=== PATIENT | male | born 1980 | race African-American/Black ===

== ENCOUNTER 2023-12-17 11:54 | Emergency (ER) | payer SELFPAY ==
[~2023-12-17] VITALS: Ht 177.8 cm; Wt 91.4 kg
[~2023-12-17 11:54] MED LIST: TYLENOL W/COD1 UDTAB PO
[2023-12-17 12:03] VITALS: TEMP 97.4
[2023-12-17] MEDS ORDERED: Ondansetron 4 MG/2 ML VIAL IV ONE (12:45)
[2023-12-17] MEDS ORDERED: NS 1,000 ML IV ONE (12:45)
[2023-12-17 13:02] LABS: BASO % 0.3 % (0.0-2.0); EOS % 0.1 % (0.0-4.0); GRAN # 12.9 K/mm3 (1.4-6.5); GRAN % 84.5 % (42.2-75.2); HEMATOCRIT 47.3 % (42.0-52.0); HEMOGLOBIN 15.7 g/dl (13.5-18.0); LYMPH # 1.2 K/mm3 (1.2-3.4); LYMPH % 7.8 % (20.0-51.0); MEAN CELL VOLUME 83 fl (80.0-100.0); MEAN CORPUSCULAR HEMOGLOBIN 28 pg (27-31); MEAN CORPUSCULAR HGB CONC 33 g/dl (33.0-37.0); MEAN PLATELET VOLUME 8.9 fl (7.4-10.4); MONO # 1.1 K/mm3 (0.1-0.6); PLATELET COUNT 405 K/mm3 (130-400); RED BLOOD COUNT 5.68 M/mm3 (4.20-5.60); REDCELL DISTRIBUTION WIDTH-CV 15.4 % (11.5-14.5)
[2023-12-17 13:28] LABS: BILIRUBIN,TOTAL 0.9 mg/dL (0.2-1.2); CALCIUM 9.5 mg/dL (8.4-10.2); CREATININE, serum 3.43 mg/dL (0.72-1.25); POTASSIUM 4.8 mEq/L (3.5-4.5)
[2023-12-17 15:42] VITALS: BP 117/65; PULSE 92
[2023-12-20 12:25] VITALS: O2SAT 100
== END 2023-12-17 15:45 | disposition left against medical advice (07) ==
LOC: COL.ER 11:54
PROVIDERS: Physician Assistant
DX: N17.9 Acute kidney failure, unspecified (principal); R74.01 Elevation of levels of liver transaminase levels; F17.210 Nicotine dependence, cigarettes, uncomplicated
CPT/HCPCS: J2405; J7030

== ENCOUNTER 2023-12-19 00:17 | Inpatient (IN) | payer SELFPAY ==
[~2023-12-19] VITALS: Ht 177.8 cm; Wt 94.6 kg
[2023-12-19] VITALS (11 sets, daily range): BP systolic 107–182; BP diastolic 93–119; PULSE 72–95; TEMP 97.1–98.4
[2023-12-19] MEDS ORDERED: NS 1,000 ML IV ONE ×3 (01:00→03:45)
[2023-12-19 01:25] LABS: ALANINE AMINOTRANSFERASE 392 U/L (0-55); ALBUMIN 3.2 g/dL (3.5-5.0); ALKALINE PHOSPHATASE 112 U/L (40-150); ANION GAP 14 mmol/L (7-16); AST,SGOT 539 U/L (5-34); BILIRUBIN,TOTAL 0.9 mg/dL (0.2-1.2); BLOOD UREA NITROGEN 33 mg/dL (9-21); CALCIUM 9.2 mg/dL (8.4-10.2); CHLORIDE 97 mEq/L (98-107); CREATININE, serum 3.49 mg/dL (0.72-1.25); GLUCOSE 113 mg/dL (70-99); POTASSIUM 3.8 mEq/L (3.5-4.5); SODIUM 134 mEq/L (136-145); TOTAL PROTEIN 6.9 g/dl (6.2-8.1)
[2023-12-19 01:26] LABS: BASO % 0.2 % (0.0-2.0); EOS # 0.1 K/mm3 (0.0-0.7); EOS % 1.3 % (0.0-4.0); GRAN # 6.6 K/mm3 (1.4-6.5); GRAN % 61.6 % (42.2-75.2); HEMATOCRIT 41.6 % (42.0-52.0); HEMOGLOBIN 14.4 g/dl (13.5-18.0); LYMPH # 2.9 K/mm3 (1.2-3.4); LYMPH % 26.7 % (20.0-51.0); MEAN CELL VOLUME 80 fl (80.0-100.0); MEAN CORPUSCULAR HEMOGLOBIN 28 pg (27-31); MEAN CORPUSCULAR HGB CONC 35 g/dl (33.0-37.0); MEAN PLATELET VOLUME 9.4 fl (7.4-10.4); MONO # 1.1 K/mm3 (0.1-0.6); MONO % 9.9 % (1.7-9.3); PLATELET COUNT 366 K/mm3 (130-400); RED BLOOD COUNT 5.19 M/mm3 (4.20-5.60); REDCELL DISTRIBUTION WIDTH-CV 14.5 % (11.5-14.5)
[2023-12-19 01:34] LABS: ALCOHOL(ethanol),MEDICAL < 10 mg/dL (0-10)
[2023-12-19 01:51] LABS: COLLECTION METHOD CLEAN CATCH
[2023-12-19] MEDS ORDERED: NS 1,000 ML IV SCH (02:00)
[2023-12-19 02:03] LABS: URINE APPEARANCE CLOUDY (CLEAR/HAZY); URINE BLOOD 2+ (NEGATIVE); URINE COLOR YELLOW (YELLOW); URINE GLUCOSE NEGATIVE (NEGATIVE); URINE KETONE NEGATIVE (NEGATIVE); URINE NITRATE NEGATIVE (NEGATIVE); URINE PROTEIN(semi-quant) NEGATIVE (NEGATIVE); URINE UROBILINOGEN 0.2 E.U/dL (0.2-1.0)
[2023-12-19 02:10] LABS: TRICYCLIC ANTIDEPRESS URINE NEGATIVE (NEGATIVE)
[2023-12-19 02:26] LABS: MAGNESIUM 1.9 mg/dL (1.6-2.6)
[2023-12-19 02:58] LABS: INR 1.1 (0.8-3.0)
[2023-12-19] MEDS ORDERED: cefTRIAXone 2 G in Water For Injection,Sterile 20 ML IV SCH (03:00)
[2023-12-19] MEDS ORDERED: Morphine 4 MG/ML VIAL IV PRN (03:30)
--- NOTE | 2023-12-19 04:00 | NUR ---
Pt. bp elevated, see vitals. KATERYNA Rosales notified. No new orders at this time.
--- NOTE | 2023-12-19 04:20 | NUR ---
Pt. to the floor. Pt. is A&OX3, assessment complete. IV to lt. ac patent, fluids started. Pt. denies pain at this time. Mckeon catheter placed per orders. 16 fr. Clear yellow urine noted. Urine sent with lab for FENA. Pt. denies further needs, call light within reach.
[2023-12-19 04:39] LABS: CREATININE, serum 3.04 mg/dL (0.72-1.25)
[2023-12-19 04:58] LABS: FRACTIONAL EXCRETION OF NA+ 0.67 %
--- NOTE | 2023-12-19 07:00 | NUR ---
awake resting in bed, bedside shift report received from PAIGE Bello
[2023-12-19 08:08] LABS: CALCIUM 8.3 mg/dL (8.4-10.2); CREATININE, serum 2.83 mg/dL (0.72-1.25); POTASSIUM 3.8 mEq/L (3.5-4.5)
--- NOTE | 2023-12-19 08:50 | NUR ---
appears to be sleeping, awakened and full assessment completed, see interventions for further info, right hand is swollen and tight to touch, has good radial pulse, only c/os minimal pain to right hand with movement, HALIE Santos with orthopaedics was in earlier and has ordered MRI,
[2023-12-19] MEDS ORDERED: Pantoprazole 40 MG in NS 10 ML IV SCH (09:00)
[2023-12-19] MEDS ORDERED: Vancomycin 1.5 GM,Special Dose/Pharmacy Prepared 1.5 GM in NS 250 ML IV SCH (09:15)
--- NOTE | 2023-12-19 09:15 | NUR ---
Vancomycin Initial Dosing Pharmacy Note Ordering provider: MD ZURI Indication/duration: CELLULITIS Relevant comorbidities: HX IV DRUG USE LABS: SCR 2.8 Recommendation: VANCOMYCIN ~15 MG/KG Maintenance dose: 1.5 grams every 24 hours Trough goal: 10-15 ug/mL. EARLY TROUGH 12/20 DUE TO MARCELL
--- NOTE | 2023-12-19 10:42 | NUR ---
awake and looking at TV, denies needs
--- NOTE | 2023-12-19 10:55 | NUR ---
Dr Forbes notified of BP 176/119
[2023-12-19] MEDS ORDERED: amLODIPine 10 MG TAB PO SCH ×2 (10:57→14:18)
--- NOTE | 2023-12-19 11:04 | NUR ---
resting in bed, female visitor in to visit at this time
--- NOTE | 2023-12-19 12:19 | NUR ---
to radiology per WC for MRI right hand
[2023-12-19] MEDS ORDERED: Gadoterate 20 ML VIAL IV ONE (12:27)
--- NOTE | 2023-12-19 13:02 | NUR ---
remains off unit for MRI
--- NOTE | 2023-12-19 13:13 | NUR ---
returned from MRI, resting in bed, instructed on ordering regular food
[2023-12-19] MEDS ORDERED: hydrALAZINE 25 MG TAB PO PRN (14:30)
--- NOTE | 2023-12-19 14:41 | NUR ---
called by crown and bridge dental lab technician he regarding his rhythmn, patient is resting in bed quietly and denies pain or needs
[2023-12-19] MEDS ORDERED: Ondansetron 4 MG/2 ML VIAL IV PRN (14:45)
--- NOTE | 2023-12-19 14:56 | NUR ---
Dry Kiln Operator met with patient to discuss discharge planning. Patient lives alone in [place] and does not have a primary care provider at this time. Patient reported he has Medicaid [facility], but is listed as self pay. BRYNN updated financial team. SW advised Roxie is able to accept Medicaid. Patient advised he uses [facility] for medications and does not use any DME. Patient is independent with ADLS, including driving. Patient does not have DPOA-HC and is not interested in creating one at this time. Patient is not , has no children, and his parents are . Patient has one sister, Dev (ph#[phone]) who lives in [place]. Patient plans to return home at time of discharge. Discharge Plan; Home
--- NOTE | 2023-12-19 17:40 | NUR ---
resting in bed looking at TV, had small amount of supper, denies needs
--- NOTE | 2023-12-19 18:58 | NUR ---
bedside shift report given to PAIGE Fu
--- NOTE | 2023-12-19 21:30 | NUR ---
Patient resting in bed. Denies any pain or needs at this time. Assessment and med rec complete. IV in left AC infusing with no complications. Call light and personal items in reach. Bed in low position and bed alarm on.
[2023-12-20] VITALS (9 sets, daily range): BP systolic 94–163; BP diastolic 54–99; PULSE 56–125; TEMP 95–98.1
--- NOTE | 2023-12-20 06:29 | NUR ---
Patient resting in bed with eyes closed. Respirations even and unlaborded. No signs of pain at this time. No changes over night. Call light and personal items in reach. Bed in low position.
[2023-12-20 07:03] LABS: BASO # 0.1 K/mm3 (0.0-0.2); BASO % 0.7 % (0.0-2.0); EOS # 0.2 K/mm3 (0.0-0.7); EOS % 2.3 % (0.0-4.0); GRAN # 5.2 K/mm3 (1.4-6.5); GRAN % 58.5 % (42.2-75.2); HEMATOCRIT 37.5 % (42.0-52.0); HEMOGLOBIN 12.9 g/dl (13.5-18.0); LYMPH # 2.5 K/mm3 (1.2-3.4); LYMPH % 28.1 % (20.0-51.0); MEAN CELL VOLUME 80 fl (80.0-100.0); MEAN CORPUSCULAR HEMOGLOBIN 27 pg (27-31); MEAN CORPUSCULAR HGB CONC 34 g/dl (33.0-37.0); MEAN PLATELET VOLUME 9.8 fl (7.4-10.4); MONO # 0.9 K/mm3 (0.1-0.6); MONO % 10.2 % (1.7-9.3); PLATELET COUNT 352 K/mm3 (130-400); REDCELL DISTRIBUTION WIDTH-CV 14.3 % (11.5-14.5)
[2023-12-20 07:12] LABS: ALBUMIN 2.7 g/dL (3.5-5.0); BILIRUBIN,TOTAL 0.4 mg/dL (0.2-1.2); CALCIUM 8.6 mg/dL (8.4-10.2); CREATININE, serum 1.93 mg/dL (0.72-1.25); POTASSIUM 3.8 mEq/L (3.5-4.5); TOTAL PROTEIN 6.3 g/dl (6.2-8.1)
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
[2023-12-20] MEDS ORDERED: Heparin 5,000 UNITS/ML 1 ML VIAL SQ SCH (12:43)
--- NOTE | 2023-12-20 12:43 | NUR ---
Shift assessment complete at 0830 this morning. Patient alert and oriented x4 and following verbal commands. Denied any increase in pain or discomfort, declined pain medications and ice for right hand. Right hand continues to have edema, patient unable to close hand completely. VSS this morning. Left leg noted to be smaller in appearance than right leg, patient states this is chronic due to injury when he was born. Patient requested shower and tolerated well.
[2023-12-20] MEDS ORDERED: Naloxone 0.4 MG/ML VIAL IV PRN (12:45)
[2023-12-20] MEDS ORDERED: fentaNYL 100 ML IV SCH (12:45)
[2023-12-20] MEDS ORDERED: Albuterol 0.083% Neb Soln 2.5 MG/3 ML UD IH PRN (12:45)
--- NOTE | 2023-12-20 12:45 | NUR ---
Patient's personal belongings received at this time from Medical Unit. PCT reported that she knew there was a vape in the bag. Contents of bag reviewed at this time. Sent with Security: Wallet - multiple cards - $14 swenson (2-$5 & 4-$1 bills) $1800 cashiers check Small manilla envelope with several small clear plastic bags containing a white powder substance & several small clear bags of dark brown hard substances resembling a pebble with a rolled $1 bill. Kept in room in patient belonging bag: Two black cell phones watch - silver colored Maroon gray ring with #22 on it & a single gray Pair of shoes - dark blue Dark blue jacket black athletic shorts dark colored athletic pants vape pen neuropsychology director jain ball cap deodorant carmex 6 envelopes of mail 1631 - Maroon gray ring with single gray given to Molly who identifies as "a friend". Next of kin (sister - Dev) approved Molly taking gray.
--- NOTE | 2023-12-20 12:48 | NUR ---
At approximately 1145 this morning this nurse entered patient room to turn IV pump back on and fix telemetry following patient's shower. Patient noted to be sitting up in bed with head tilted back and snoring. Attempted to wake patient up with voice and touch with no response. Patient was sternal rubbed with no response. Strong pulse noted to carotid and radial areas. Telmetry fixed and teletype adjuster called, states patient is in sinus tachycardia. This nurse called for vitals cart and obtained vital signs, HR 125, RR 12, SBP 106, SpO2 reading 25% on room air. RT called as well as CAT call to ICU at approximately 1150. Patient placed on oxygen by RT via cannula then oxymask. Dr. Mckeon entered room to assess patient and orders obtained for head CT and intubation. Patient escorted via bed to ICU by AUTO HEADLIGHT MECHANIC, this nurse, charge nurse, and physician at approximately 1155. Patient intubated in ICU by Dr. Baker and then taken to CT, this nurse remained at bedside. Report given to PAIGE Huang once patient in CT.
[2023-12-20] MEDS ORDERED: Rocuronium 50 MG/5 ML Multi-Dose VIAL IV ONE (13:30)
[2023-12-20] MEDS ORDERED: Albuterol/Ipratropium 3 MG-0.5 MG/3 ML Neb Soln IH SCH (14:00)
--- NOTE | 2023-12-20 14:21 | NUR ---
Patient's sister, Dev called social services specialist and advised her phone number is [phone]. Worker advised that patient became ill and is now on a ventilator. Dev confirms that patient does not have children/spoue/and parents and that she is his legal next of kin. Worker provided this information to ICU nursing.
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
[2023-12-20] MEDS ORDERED: Iohexol 300 - 100 ML VIAL IV ONE (15:59)
[2023-12-20] MEDS ORDERED: NS 100 ML IV SCH (16:01)
[2023-12-20 17:45] LABS: ARTERIAL BLD GAS O2 SATURATION 94.1 % (92-100); ARTERIAL BLD GAS TCO2 CT 25.1; ARTERIAL BLOOD GAS BASE EXCESS 2.3 (-2-2); ARTERIAL BLOOD GAS HCO3 24.2 meq/L (22-26); ARTERIAL BLOOD GAS PCO2 29.6 mmHg (35-45); ARTERIAL BLOOD GAS pH 7.53 (7.35-7.45)
--- NOTE | 2023-12-20 18:13 | NUR ---
Patient came to us as a CAT CALL from the floor. He was found unresponsive, see Critical care response note. Patient was intubated, klein and OG placed, PICC placed, Prop/Fent started, NS at 200 ml/hr. CT and CTA done. Restraints on. Social dynamics were addressed, belongings are in security.
--- NOTE | 2023-12-20 21:05 | NUR ---
PATIENT CURRENTLY INTUBATED AND SEDATED. BILATERAL WRIST RESTRAINTS IN PLACE. ET TUBE AT 27 AT THE LIPS, OG TUBE AT 71 AT THE LIPS. PICC LINE TO LEFT UPPER ARM. CALIX CATHETER IN PLACE AND DRAINING. PT WAKES TO PAINFUL STIMULI BUT DOES NOT FOLLOW COMMANDS.
[2023-12-21] VITALS (21 sets, daily range): BP systolic 128–182; BP diastolic 48–110; PULSE 64–98; TEMP 35.7–37.4; O2SAT 85–100
[2023-12-21 04:44] LABS: BASO # 0.1 K/mm3 (0.0-0.2); EOS # 0.6 K/mm3 (0.0-0.7); EOS % 8.2 % (0.0-4.0); GRAN # 2.7 K/mm3 (1.4-6.5); GRAN % 37.3 % (42.2-75.2); HEMOGLOBIN 11.3 g/dl (13.5-18.0); LYMPH # 3.4 K/mm3 (1.2-3.4); LYMPH % 47.3 % (20.0-51.0); MEAN CELL VOLUME 80 fl (80.0-100.0); MEAN CORPUSCULAR HEMOGLOBIN 27 pg (27-31); MEAN CORPUSCULAR HGB CONC 34 g/dl (33.0-37.0); MEAN PLATELET VOLUME 8.9 fl (7.4-10.4); MONO # 0.4 K/mm3 (0.1-0.6); MONO % 5.9 % (1.7-9.3); PLATELET COUNT 320 K/mm3 (130-400); RED BLOOD COUNT 4.14 M/mm3 (4.20-5.60); REDCELL DISTRIBUTION WIDTH-CV 14.5 % (11.5-14.5)
[2023-12-21 04:50] LABS: HEMATOCRIT 33.1 % (42.0-52.0)
[2023-12-21 05:04] LABS: ALBUMIN 2.4 g/dL (3.5-5.0); BILIRUBIN,TOTAL 0.6 mg/dL (0.2-1.2); CALCIUM 8.2 mg/dL (8.4-10.2); CREATININE, serum 1.85 mg/dL (0.72-1.25); POTASSIUM 3.6 mEq/L (3.5-4.5); TOTAL PROTEIN 5.3 g/dl (6.2-8.1)
--- NOTE | 2023-12-21 05:37 | NUR ---
PATIENT AWOKE EASILY DURING SEDATION VACATION. DID NOT FOLLOW COMMANDS, BUT WAS MOVING ALL EXTREMITIES AND WAS AGITATED.
[2023-12-21 05:49] LABS: ARTERIAL BLOOD GAS PCO2 36.9 mmHg (35-45); ARTERIAL BLOOD GAS pH 7.42 (7.35-7.45)
[2023-12-21 05:50] LABS: ARTERIAL BLOOD GAS BASE EXCESS -0.8 (-2-2); ARTERIAL BLOOD GAS HCO3 23.3 meq/L (22-26); ARTERIAL BLOOD GAS PO2 171.2 mmHg (80-100)
[2023-12-21] MEDS ORDERED: LR 1,000 ML IV SCH (06:00)
--- NOTE | 2023-12-21 08:34 | NUR ---
Placed on weaning trial; patient opens eyes and follows commands. Tolerating trial well, however is is bradypneic with RR of 8-10. Will wait to extubate until RR is consistently 14-[address] Baker
[2023-12-21] MEDS ORDERED: Potassium Bicarbonate/Citrate 20 MEQ Effervescent TAB PO SCH (09:15)
[2023-12-21] MEDS ORDERED: Magnesium Sulfate 4% 50 ML IV ONE ×2 (09:15→13:00)
[2023-12-21] MEDS ORDERED: *Potassium Replacement Protocol MC SCH (09:15)
[2023-12-21] MEDS ORDERED: Potassium Chloride 100 ML IV SCH (09:15)
--- NOTE | 2023-12-21 09:15 | NUR ---
Reported vanco trough to pharmacist. Will continue with current dosage.
--- NOTE | 2023-12-21 09:45 | NUR ---
Temp 99.0; Jesus bahena discontinued.
--- NOTE | 2023-12-21 10:52 | NUR ---
Patient following commands and breathing 14-20 BPM. Coughing and gagging on tube. RT suctioned patient and after patient extubated to room air at 1052. 02 98 % on RM. Call light left within reach and restraints discontinued.
--- NOTE | 2023-12-21 11:18 | NUR ---
Dr. Baker and Dr. Mckeon notified that patient has been extubated. No new orders at this time.
--- NOTE | 2023-12-21 11:30 | NUR ---
Vancomycin Follow-up Pharmacy Note Current regimen: Vancomycin 1.5 gm IV q24h Vancomycin trough: 3.82 (prior to 3rd dose) Adjustments: Increase Vancomycin to 1.5 gm IV q12h. Pharmacy will continue to closely monitor and check a trough on 12/23/23.
--- NOTE | 2023-12-21 11:41 | NUR ---
PT EXTUBATED TO RA. NO COMPLICATIONS. 96% ON RA
[2023-12-21] MEDS ORDERED: oxyCODONE 5 MG TAB PO PRN (13:00)
[2023-12-21] MEDS ORDERED: Acetaminophen 500 MG TAB PO PRN ×2 (13:00→14:30)
--- NOTE | 2023-12-21 14:42 | NUR ---
Patient transfered up to medical floor via wheelchair. Alert and oriented and in no distress upon transfer. Family accompanied patient up to the medical floor. Primary nurse notified of arrival.
--- NOTE | 2023-12-21 14:50 | NUR ---
Patient came from icu. Patient denies pain at this time. Patient has left upper arm picc. Patient right upper extremity is swollen and hand. [atient able to barely move his fingers from swollen hand. Patient came from ICU with a klein catheter but patient reported that ' Patient fell the need to pee," this nurse let patient know that he had a klein and patient expressed his klein was out. this nurse checked the klein and it looked inplace later patient reported the bed was wet and this nurse recheked the klein and it was no longer fully in. this nurse removed the rest of klein out and helped the patiet to the bathroom. Patient had yellow clear urine. Patient bed was changed and new gown was provided.Call light within reach. bed at lowest position.
--- NOTE | 2023-12-21 15:55 | NUR ---
provider was notified about patient's klein. provider notified me it was fine to leave it off.
[2023-12-21] MEDS ORDERED: Magnesium Oxide 400 MG TAB PO SCH (17:00)
[2023-12-21] MEDS ORDERED: Vancomycin 1.5 GM,Special Dose/Pharmacy Prepared 1.5 GM in NS 250 ML IV SCH (21:00)
[2023-12-22] VITALS (8 sets, daily range): BP systolic 144–164; BP diastolic 93–109; PULSE 82–98; TEMP 98.1–99.1
[2023-12-22 06:26] LABS: BASO # 0.1 K/mm3 (0.0-0.2); BASO % 0.9 % (0.0-2.0); EOS % 11.6 % (0.0-4.0); GRAN # 4.4 K/mm3 (1.4-6.5); GRAN % 50.6 % (42.2-75.2); HEMATOCRIT 37.4 % (42.0-52.0); HEMOGLOBIN 12.5 g/dl (13.5-18.0); LYMPH # 2.3 K/mm3 (1.2-3.4); LYMPH % 27.1 % (20.0-51.0); MEAN CELL VOLUME 81 fl (80.0-100.0); MEAN CORPUSCULAR HEMOGLOBIN 27 pg (27-31); MEAN CORPUSCULAR HGB CONC 33 g/dl (33.0-37.0); MEAN PLATELET VOLUME 9.7 fl (7.4-10.4); MONO # 0.8 K/mm3 (0.1-0.6); MONO % 9.6 % (1.7-9.3); PLATELET COUNT 365 K/mm3 (130-400); RED BLOOD COUNT 4.61 M/mm3 (4.20-5.60); REDCELL DISTRIBUTION WIDTH-CV 14.7 % (11.5-14.5)
[2023-12-22 06:39] LABS: C-REACTIVE PROTEIN 4.17 mg/dL (0.00-0.50); CREATININE, serum 1.61 mg/dL (0.72-1.25); MAGNESIUM 1.7 mg/dL (1.6-2.6); POTASSIUM 3.6 mEq/L (3.5-4.5)
--- NOTE | 2023-12-22 10:56 | NUR ---
Patient alert and oriented x4. Complains of mild pain to right hand, declined need for pain medication. HR noted to be tachycardic, rhythm regular. Lung sounds clear. Edema continues to right hand, no pitting noted, hand pricer bagger unequal due to edema. Patient tolerating activity at baseline, ambulating to bathroom and back to bed. Tolerating food and fluids well. Visitor at bedside. Call light within reach, all needs met at this time.
--- NOTE | 2023-12-22 18:07 | NUR ---
Patient remains stable, family at bedside. Complains of 7/10 pain to right hand, but declines pain meds whenever offered. Continues to ambulate self to bathroom and urinate frequently. Voices no concerns at this time. Call light within reach, all needs met at this time.
[2023-12-22] MEDS ORDERED: Potassium Bicarbonate/Citrate 20 MEQ Effervescent TAB PO SCH (18:45)
[2023-12-23] VITALS (14 sets, daily range): BP systolic 141–186; BP diastolic 65–115; PULSE 67–102; TEMP 97.2–100.1
[2023-12-23] MEDS ORDERED: Potassium Bicarbonate/Citrate 20 MEQ Effervescent TAB PO SCH ×2 (07:30→19:45)
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
[2023-12-24 01:04] VITALS: BP_SYST 152
[2023-12-24 03:48] VITALS: BP 140/88; PULSE 89; TEMP 99.1
[2023-12-24 05:00] VITALS: BP_SYST 140
[2023-12-24 07:12] LABS: BASO # 0.1 K/mm3 (0.0-0.2); BASO % 0.5 % (0.0-2.0); EOS # 0.7 K/mm3 (0.0-0.7); GRAN # 7.6 K/mm3 (1.4-6.5); GRAN % 63.2 % (42.2-75.2); HEMOGLOBIN 12.4 g/dl (13.5-18.0); LYMPH # 2.3 K/mm3 (1.2-3.4); LYMPH % 18.9 % (20.0-51.0); MEAN CELL VOLUME 79 fl (80.0-100.0); MEAN CORPUSCULAR HEMOGLOBIN 28 pg (27-31); MEAN CORPUSCULAR HGB CONC 35 g/dl (33.0-37.0); MEAN PLATELET VOLUME 9.2 fl (7.4-10.4); MONO # 1.3 K/mm3 (0.1-0.6); MONO % 11.1 % (1.7-9.3); PLATELET COUNT 388 K/mm3 (130-400); REDCELL DISTRIBUTION WIDTH-CV 14.3 % (11.5-14.5)
[2023-12-24 07:15] LABS: HEMATOCRIT 35.7 % (42.0-52.0)
[2023-12-24 07:37] LABS: ALBUMIN 2.8 g/dL (3.5-5.0); BILIRUBIN,TOTAL 0.4 mg/dL (0.2-1.2); C-REACTIVE PROTEIN 2.34 mg/dL (0.00-0.50); CALCIUM 8.6 mg/dL (8.4-10.2); CREATININE, serum 1.44 mg/dL (0.72-1.25); MAGNESIUM 1.4 mg/dL (1.6-2.6); POTASSIUM 3.5 mEq/L (3.5-4.5); TOTAL PROTEIN 6.5 g/dl (6.2-8.1)
[2023-12-24 07:45] VITALS: BP 140/96; PULSE 91; TEMP 98.2
[2023-12-24] MEDS ORDERED: DOXYCYCLINE HY100 MG PO (08:17)
[2023-12-24] MEDS ORDERED: ASPIRIN 81M81 MG/TA2 PO (08:21)
[2023-12-24 09:00] VITALS: BP_SYST 140
[2023-12-24] MEDS ORDERED: Potassium Bicarbonate/Citrate 20 MEQ Effervescent TAB PO SCH (09:00)
--- NOTE | 2023-12-24 09:20 | NUR ---
PT LAYING IN BED UPON ENTERING, FAMILY AT BEDSIDE. ASSESSMENT DONE, MEDS GIVEN PER ORDER. LEFT UPPER ARM PICC IN PLACE WITH NORMAL SALINE RUNNING AT 150 MLS/HR PER ORDER. PURPLE AND RED PORTS FLUSH WITH BLOOD RETURN. RIGHT HAND EDEMATOUS, PT DENIES PAIN AND SKIN INTACT. BILATERAL RADIAL PULSES EQUAL AND INTACT. WAMRTH NOTED TO RIGHT HAND. LESS MUSCLE MASS NOTED TO LEFT LOWER EXTREMITY COMPARED TO RIGHT. PT DENIES NEEDS AND WONDERING WHEN HE CAN LEAVE. THIS NURSE NOTIFIED HIM THAT RIGHT HAND ULTRASOUND NEEDED TO BE DONE AND THEM A POSSIBLE ORDER AFTER, PT UPSET BUT VERBALIZED UNDERSTANDING. BED IN LOWEST POSITION, CALL LIGHT IN REACH.
[2023-12-24] MEDS ORDERED: Vancomycin 1.5 GM,Special Dose/Pharmacy Prepared 1.5 GM in NS 250 ML IV SCH (11:00)
[2023-12-24 12:00] VITALS: BP 139/91; PULSE 90; TEMP 98.4
--- NOTE | 2023-12-24 12:10 | NUR ---
[facility], CALLED AND NOTIFIED THAT PT IS DISCHARGING AND NEEDS PICC REMOVED.
--- NOTE | 2023-12-24 13:00 | NUR ---
PICC REMOVED AND PT DONE WITH FLAT TIME. DISCHARGE INSTRUCTIONS GIVEN AND PT VERBALIZED UNDERSTANDING REGARDING FOLLOW UPS AND MEDS. PT ESCORTED TO PERSONAL VEHICLE BY PCT.
--- NOTE | 2023-12-24 14:33 | NUR ---
Driver Salesman met with patient who is set to discharge home today. SW spoke with patient about the [facility] and he is agreeable to SW making him an appointment. SW contacted [facility] and set appointment for 01/10/24 at 1245. SW also faxed records to [facility] per their request. Discharge Plan: Home
== END 2023-12-24 13:00 | disposition home or self-care (01) | DRG 917 ==
LOC: COL.ER 00:17 → MEDICAL 02:04 → ICU 12-20 12:06 → MEDICAL 12-21 13:00
PROVIDERS: Internal Medicine; Internal Medicine Pulmonary Disease; Nurse Practitioner; Nurse Practitioner Family; Physician Assistant; ADMIT Internal Medicine
PROC: 02H633Z Insertion of Infusion Device into Right Atrium, Percutaneous Approach (ICD-10-PCS; principal; 2023-12-20)
PROC: 0BH18EZ Insertion of Endotracheal Airway into Trachea, Via Natural or Artificial Opening Endoscopic (ICD-10-PCS; 2023-12-20)
PROC: 5A1935Z Respiratory Ventilation, Less than 24 Consecutive Hours (ICD-10-PCS; 2023-12-20)
DX: T40.5X1A Poisoning by cocaine, accidental (unintentional), initial encounter (principal); G92.8 Other toxic encephalopathy; J96.91 Respiratory failure, unspecified with hypoxia; N17.9 Acute kidney failure, unspecified; M62.82 Rhabdomyolysis; L03.113 Cellulitis of right upper limb; E87.1 Hypo-osmolality and hyponatremia; K31.1 Adult hypertrophic pyloric stenosis; E87.3 Alkalosis; B17.9 Acute viral hepatitis, unspecified; F17.210 Nicotine dependence, cigarettes, uncomplicated; G56.01 Carpal tunnel syndrome, right upper limb; N14.19 Nephropathy induced by other drugs, medicaments and biological substances; G93.89 Other specified disorders of brain; E87.8 Other disorders of electrolyte and fluid balance, not elsewhere classified; M60.9 Myositis, unspecified; E83.42 Hypomagnesemia; E87.6 Hypokalemia; Z86.73 Personal history of transient ischemic attack (TIA), and cerebral infarction without residual deficits; Z23 Encounter for immunization
CPT/HCPCS: A9575; C1751; C9113; J0696; J0737; J1644; J2270; J2704; J3010; J3370; J3475; J3480; J7030; J7050; Q3014; Q9967